=== PATIENT | male | born 1980 | race Caucasian/White ===

== ENCOUNTER → 2022-01-08 13:06 | Outpatient (CLI) | payer OTHER, SELFPAY ==
[2022-01-09 09:42] LABS: Covid-19 Nasal PCR Sendout Lex NOT DETECTED
== END ==
PROVIDERS: Visit Provider Nurse Practitioner
DX: Z20.822 Contact with and (suspected) exposure to COVID-19 (principal)
CPT/HCPCS: C9803; U0004; U0005

== ENCOUNTER 2022-01-29 18:32 | Emergency (ER) | payer OTHER, SELFPAY ==
[2022-01-29 20:18] VITALS: BP 170/110; PULSE 87; RESP 19; TEMP 36.7; O2SAT 97; BMI 26.6
--- NOTE | 2022-01-29 20:42 | HMH.EDUTC ---
[facility] [place] Disposition Clinical Impression: Viral syndrome, Exposure to COVID-19 virus Disposition: Home, Self-Care Condition on Discharge: Good Instructions: DI for COVID-19 (Suspected or Confirmed ), Preventing the Spread of Coronavirus Discharge Instructions Additional Instructions: Drink plenty of fluids. Take tylenol or ibuprofen for pain or fever. Take the medications as directed. Follow up with your regular doctor. GO TO THE ER FOR ANY WORSENING SYMPTOMS Quarantine until you know the results of your covid-19 test. Notify your school or workplace of your results and follow their instructions regarding return to work/school. Prescriptions: Brompheniramine/Pseudoephed/Dm [Bromfed Dm Cough Syrup] 5 ml PO Q6HP PRN #240 ml PRN Reason: Cough Transmission Status: Received by [facility] #[id number] Ondansetron [Zofran 4mg ODT] 4 mg PO Q8HP PRN #20 tab PRN Reason: Nausea Transmission Status: Received by [facility] #[id number] Referrals: Provider,Referral, [Primary Care Provider] - Forms: Work/School Release Time of Disposition: 20:48 Medical Decision Making - Medical Records Medical records reviewed: No: I reviewed the patient's medical records. - Pepe Inquiry Pt receiving controlled substance: No Vital Signs: 01/29/22 20:18 01/29/22 20:54 Temperature 98.1 F 98.1 F Temperature Source Oral Pulse Rate 87 Pulse Rate [Right] 87 Respiratory Rate 19 19 Blood Pressure 170/110 H Blood Pressure [Right Arm] 170/110 H Blood Pressure Mean [Right Arm] 130 02 Sat by Pulse Oximetry 97 - Lab Data Lab results reviewed: Yes: I reviewed the patient's lab results. [facility] [place] HPI - General Stated complaint: covid test Time Seen by Provider: 01/29/22 20:42 Mode of Arrival: Ambulatory Source of Information: Patient Limitations: No Limitations Description of Symptoms (Recalled from Triage Doc. 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 HEENT Symptoms (Recalled from RN notes): Yes Resp Symptoms (Recalled from RN notes): No Skin Symptoms (Recalled from RN notes): No MS Symptoms (Recalled from RN notes): No Functional Status (Recalled from RN notes): wnl - History of Present Illness Provider Complaint: He is here for a covid-19 test. He has been exposed. He does not feel too bad, but he does have a head ache and a loss of taste - Related Data Previous Rx's Medication Instructions Recorded Brompheniramine/Pseudoephed/Dm 5 ml PO Q6HP PRN #240 ml 01/29/22 [Bromfed Dm Cough Syrup] Ondansetron [Zofran 4mg ODT] 4 mg PO Q8HP PRN #20 tab 01/29/22 Allergies Allergy/AdvReac Type Severity Reaction Status Date / Time Iodinated Contrast Media Allergy Verified 01/29/22 20:22 - Worker's Comp Is this a Worker's Comp case?: No [facility] History - Hepatitis A Screen Drug use history?: No High risk sexual behaviors?: No History of sexually transmitted infection?: No Currently employed?: No Childcare worker?: No Do you have indoor plumbing?: Yes Do you have electricity?: Yes Attestation statement:: This patient has been screened for Hepatitis A risk factors. I have reviewed the patient's past medical history: Yes ROS Obtained: Yes All systems reviewed & no additional complaints - Constitutional Constitutional: Reports as per HPI - Eyes Eyes: Denies eye discharge - ENT Ears, Nose, Mouth, and Throat: Reports as per HPI - Cardiovascular Cardiovascular: Denies chest pain - Respiratory Respiratory: Denies chest congestion, Reports cough, Denies dyspnea, Denies stridor, Denies wheezing Physical Exam - General General appearance: alert, in no apparent distress - Head Head exam: atraumatic, normocephalic, normal inspection - Eye Eye exam: Present: normal appearance, PERRL, EOMI - ENT ENT exam: Present: normal exam, normal oropharynx, mucous membranes moist, TM's normal bilaterally, normal external ear exam - Neck Neck exam: Presen
[2022-01-29 20:54] VITALS: BP 170/110; PULSE 87; RESP 19; TEMP 36.7
== END 2022-01-29 20:55 | disposition home or self-care (01) ==
LOC: UTC 18:40
PROVIDERS: Emergency Provider Nurse Practitioner Family
DX: B34.9 Viral infection, unspecified (principal); Z20.822 Contact with and (suspected) exposure to COVID-19
CPT/HCPCS: 99212; C9803; G0463; U0003; U0005

== ENCOUNTER 2022-03-31 09:08 | Emergency (ER) | payer OTHER, SELFPAY ==
[2022-03-31 09:28] VITALS: BP 163/109; PULSE 76; RESP 18; TEMP 36.6; O2SAT 99; BMI 25.9
--- NOTE | 2022-03-31 10:07 | HMH.EDUTC ---
[facility] [place] Disposition Clinical Impression: Cellulitis of finger of right hand, Abscess of finger of right hand Disposition: Home, Self-Care Condition on Discharge: Good Instructions: Cellulitis Additional Instructions: Keep the affected area clean and dry. Follow up with your regular doctor. Take the antibiotics as directed and apply the topical antibiotics as directed. Apply warm wet compresses to the affected area three or four times per day. GO TO THE ER FOR ANY WORSENING SYMPTOMS Prescriptions: Sulfamethoxazole/Trimethoprim [Bactrim DS tablet] 1 each PO BID 10 Days #20 tab Transmission Status: Received by [facility] # Mupirocin [Bactroban 2% Ointment 22gm tube] 1 applicatio TP TID 7 Days #1 gm Transmission Status: Received by [facility] # Referrals: Manuel Leonard MD [Primary Care Provider] - Forms: Work/School Release Time of Disposition: 10:09 Medical Decision Making - Medical Records Medical records reviewed: No: I reviewed the patient's medical records. - Pepe Inquiry Pt receiving controlled substance: No Vital Signs: 03/31/22 09:28 03/31/22 10:40 Temperature 97.9 F 97.9 F Temperature Source Oral Pulse Rate 76 Pulse Rate [Left] 76 Respiratory Rate 18 18 Blood Pressure 150/90 H Blood Pressure [Right Arm] 163/109 H Blood Pressure Mean [Right Arm] 127 02 Sat by Pulse Oximetry 99 Orders (Tests/Meds): ED MEDICATIONS Discontinued Medications Generic Name Dose Route Start Last Admin Trade Name Freq PRN Reason Stop Dose Admin Ceftriaxone Sodium 1 gm 03/31/22 10:04 03/31/22 10:22 Ceftriaxone 1gm Vial IM 03/31/22 10:05 1 gm ONCE ONE Administration Lidocaine HCl 0 ml 03/31/22 10:04 03/31/22 10:22 Lidocaine 1% 5ml Pf Vial IM 03/31/22 10:05 2 ml ONCE ONE Administration [facility] [place] HPI - General Stated complaint: swollen middle finger rt hand Time Seen by Provider: 03/31/22 09:40 Mode of Arrival: Ambulatory Source of Information: Patient Description of Symptoms (Recalled from Triage Doc. by RN): pt states that he has a blister on his right middle finger. he poked it and ripped the top off. now right middle finger is swollen HEENT Symptoms (Recalled from RN notes): No Resp Symptoms (Recalled from RN notes): No Skin Symptoms (Recalled from RN notes): Yes MS Symptoms (Recalled from RN notes): No Functional Status (Recalled from RN notes): wnl - History of Present Illness Provider Complaint: He states that for the past 3 days he has had a worsening red area on his right middle finger. It started out as a blister after he had worked hard, then it began to turn red. Now it is very painful and swollen some. - Related Data Previous Rx's Medication Instructions Recorded Brompheniramine/Pseudoephed/Dm 5 ml PO Q6HP PRN #240 ml 01/29/22 [Bromfed Dm Cough Syrup] Ondansetron [Zofran 4mg ODT] 4 mg PO Q8HP PRN #20 tab 01/29/22 Mupirocin [Bactroban 2% Ointment 1 applicatio TP TID 7 Days #1 gm 03/31/22 22gm tube] Sulfamethoxazole/Trimethoprim 1 each PO BID 10 Days #20 tab 03/31/22 [Bactrim DS tablet] clindamycin HCl 300 mg capsule 300 mg PO Q8H #30 cap 04/01/22 nebivolol 10 mg tablet 10 mg PO DAILY #90 tab 04/01/22 Allergies Allergy/AdvReac Type Severity Reaction Status Date / Time Iodinated Contrast Media Allergy Verified 03/31/22 09:28 - Worker's Comp Is this a Worker's Comp case?: No [facility] History - Hepatitis A Screen Attestation statement:: This patient has been screened for Hepatitis A risk factors. I have reviewed the patient's past medical history: Yes ROS Obtained: Yes All systems reviewed & no additional complaints - Constitutional Constitutional: Denies chills, Denies fever(s) - Musculoskeletal Musculoskeletal: Denies joint pain - Integumentary/Breasts Skin/Breast: Reports as per HPI - Neurologic Neurologic: Denies tingling/numbness/burning sensations Physical Exa
[2022-03-31 10:40] VITALS: BP 150/90; PULSE 76; RESP 18; TEMP 36.6
== END 2022-03-31 10:43 | disposition home or self-care (01) ==
PROVIDERS: Emergency Provider Nurse Practitioner Family; PCP Family Medicine
DX: L03.011 Cellulitis of right finger (principal)
CPT/HCPCS: 96372; 99212; G0463; J0696

== ENCOUNTER → 2022-04-01 11:30 | Outpatient (CLI) | payer OTHER, SELFPAY ==
--- NOTE | 2022-04-01 11:34 | XR_ITS ---
FINAL REPORT CLINICAL HISTORY: chest pain, smoker, no sx FINDINGS: Two views of the chest were obtained. The heart size and pulmonary vascularity are within normal limits. The mediastinum is normal. No acute pulmonary abnormality is identified. There is no pneumothorax. The bony thorax is intact. IMPRESSION: No active cardiopulmonary disease. Reviewed, Interpreted and Dictated by Orville Hanna III, MD Transcribed by Branden Goodwin Authenticated by Orville Hanna III, MD on 04/01/2022 01:56:21 PM [facility]
--- NOTE | 2022-04-01 11:34 | XR_ITS ---
FINAL REPORT CLINICAL HISTORY: . swelling and pain 3rd digit, ? foreign body FINDINGS: Two views of the right 3rd digit were obtained. There is no acute fracture or dislocation. The joint spaces are intact. There is soft tissue swelling of the 3rd digit. There is no foreign body identified. IMPRESSION: No acute fracture or foreign body. Reviewed, Interpreted and Dictated by Orville Hanna III, MD Transcribed by Branden Goodwin Authenticated by Orville Hanna III, MD on 04/01/2022 01:56:24 PM [facility]
[2022-04-01 13:46] LABS: Alanine Aminotransferase 34 U/L (12-78); Albumin Level 4.3 g/dl (3.5-5.0); Albumin/Globulin Ratio 1.5 (1.1-1.8); Alkaline Phosphatase 89 U/L (38-126); Anion Gap 9.1 mEq/L (5-15); Aspartate Amino Transferase 39 U/L (17-59); Bilirubin,Total 0.8 mg/dl (0.2-1.3); Blood Urea Nitrogen 11 mg/dl (9-20); Calcium 9.2 mg/dl (8.4-10.2); Carbon Dioxide 31 mmol/L (22.0-30.0); Chloride 105 mmol/L (98-107); Chol/HDL Ratio 5.6 (1-3.5); Cholesterol 214 mg/dl (140-200); Estimated Glomerular Filt Rate 83 ml/min (>60); GFR (African American) 100 ML/MIN (>60); Globulin 2.8 g/dL (1.3-3.2); Glucose 86 mg/dl (74-100); HDL Cholesterol 38 mg/dl (40-60); Potassium 4.1 mmoL/L (3.5-5.1); Sodium 141 mmol/L (136-145); Total Protein,Serum 7.1 g/dl (6.3-8.2); Triglycerides 126 mg/dl (30-150); VLDL Cholesterol 25 mg/dL (0-40)
[2022-04-01 13:57] LABS: Direct LDL Cholesterol 136.72 mg/dL (100-129)
[2022-04-01 14:04] LABS: Basophils # 0.1 K/mm3 (0-0.2); Basophils % 1.1 % (0.1-2.0); Eosinophils # 0.3 K/mm3 (0.0-0.4); Eosinophils % 3.9 % (0.1-12.0); Hematocrit 49.5 % (42.0-52.0); Hemoglobin 16.8 g/dL (14.1-18.0); Lymphocytes # 1.4 K/mm3 (0.7-4.5); Lymphocytes % 17.1 % (10-50); Mean Corpuscular HGB Conc 34.1 g/dL (31.8-35.4); Mean Corpuscular Hemoglobin 32.1 pg (27.0-31.2); Mean Corpuscular Volume 94.2 fl (80-94); Mean Platelet Volume 8.9 fl (7.4-10.4); Monocytes # 0.6 K/mm3 (0.1-1.0); Monocytes % 7.2 % (1.7-9.3); Neutrophils # 5.9 K/mm3 (1.8-7.8); Neutrophils % 70.7 % (37.0-80.0); Platelet Count 288 K/mm3 (142-424); Red Blood Count 5.25 M/mm3 (4.60-6.20); Red Cell Distribution Width 13.3 % (11.5-17.5); White Blood Count 8.4 K/mm3 (4.8-10.8)
== END ==
PROVIDERS: PCP Family Medicine; Visit Provider Family Medicine
DX: R07.89 Other chest pain (principal); L03.011 Cellulitis of right finger; Z76.89 Persons encountering health services in other specified circumstances
CPT/HCPCS: 71046; 73140; 80053; 80061; 85025

== ENCOUNTER → 2022-04-01 22:09 | Outpatient (CLI) | payer OTHER, SELFPAY | PROVIDERS: PCP Family Medicine; Visit Provider Family Medicine | DX: R07.89 Other chest pain (principal); I10 Essential (primary) hypertension; Z76.89 Persons encountering health services in other specified circumstances; Z72.0 Tobacco use; Z79.899 Other long term (current) drug therapy ==

== ENCOUNTER → 2022-04-10 08:36 | Outpatient (CLI) | payer OTHER, SELFPAY ==
--- NOTE | 2022-04-10 | CA_ITS ---
APPROVED REPORT Exam: Exercise Treadmill Technologist: Angela Lebron, Ht: 6 ft 2 in Wt: 194 lbs BSA: 2.15 m2 HR: 70 bpm BP: 157/96 mmHg Rhythm: sinus arrhythmias, rightward axis Medical History Medical History: HTN Medications: MuPRIROCIN,,,,, ClINDAMYCIN,,,,, ONdanESETRAN,,,,, BROmpheniramine,,,,, SuLFAMETHOXAZ trimethoprin,,,,, Cardiac Risk Factors: HTN, FHX of CAD Stress Test Details Test: Alena HR Resting HR: 88 bpm Max Heart Rate (APMHR): 180.034961 bpm Max HR Achieved: 186 bpm Target HR (85% APMHR): 153.044934 bpm % of APMHR: 103.33 Recovery HR: 179 bpm BP Resting BP: 156/99 mmHg Max BP: 230/100 mmHg Recovery BP: 143.0/84.0 mmHg ECG Resting ECG: sinus arrhytmia, rightward axis Clinical Exercise duration: 13:17 min Highest Stage Achieved: Exercise capacity: 14.8 METs Stress ECG Conclusion During alena protocol pt exercised total of 13:17 into stage 5. Pt experinced sharp stabbing CP beginning of stage 3, continuing to test completion. No arrhythmias noted. Normal ST response to exercise. Atypical CP with normal stress EKGs. Good exercise tolerance. Myoview images reported separately. Test Summary RECOVERY 06:00 0.0 0.0 102 . 143/ 84 . . REST . . . . . . . Standing REST . . . . . . . Standing REST 08:35 0.0 0.0 88 . 156/ 99 . . Stage 1 01:00 10.0 1.7 109 . . . . Stage 1 02:00 10.0 1.7 111 . . . . Stage 1 03:00 10.0 1.7 113 . 178/100 . . Stage 2 01:00 12.0 2.5 122 . . . . Stage 2 02:00 12.0 2.5 129 . . . . Stage 2 03:00 12.0 2.5 135 . 208/100 . . Stage 3 01:00 14.0 3.4 144 . . . . Stage 3 02:00 14.0 3.4 149 . . . . Stage 3 03:00 14.0 3.4 154 . 222/ 98 . . Stage 4 01:00 16.0 4.2 160 . . . . Stage 4 02:00 16.0 4.2 169 . 230/100 . . Stage 4 03:00 16.0 4.2 172 . 230/100 . . Stage 5 01:00 18.0 5.0 181 . . . . Stage 5 01:17 18.0 5.0 184 . . . Stop exercise at 13:17 RECOVERY 01:00 0.0 0.0 149 . . . . RECOVERY 02:00 0.0 0.0 116 . . . . RECOVERY 03:00 0.0 0.0 105 . . . . RECOVERY 04:00 0.0 0.0 98 . . . . RECOVERY 05:00 0.0 0.0 102 . . . . RECOVERY 06:00 0.0 0.0 102 . 143/ 84 . . RECOVERY 07:00 0.0 0.0 101 . 135/ 77 . . RECOVERY 07:21 0.0 0.0 105 . 135/ 77 . . Electronically signed by : Carlos Geiger MD 04/11/2022 12:50:24
--- NOTE | 2022-04-10 08:37 | CA_ITS ---
APPROVED REPORT EXAM: Comprehensive 2D, Doppler, and color-flow Echocardiogram Reading Tutor: Kristi Strong RT(R) Ht: 6 ft 2 in Wt: 197lbs BSA: 2.16 BP: 149/105 mmHg Indications: CP, hx cocaine use, hx heroin use, hx meth use, GERD, hx ME. Stress Test Details HR Max Heart Rate (APMHR): 180.430674 bpm Target HR (85% APMHR): 153.960377 bpm BP ECG Conclusion 1. Patient exercised on Ankit protocol achieving 14.8 METs of workload on treadmill with no EKG changes to suggest ischemia. 2. Resting echocardiogram showed normal left ventricular size and function with no regional wall motion abnormality, with exercise there is increase in contractility of all the segments of the myocardium with hyperdynamic left ventricular systolic response, no obvious regional wall motion abnormality to suggest underlying ischemic heart disease. 3. Normal exercise stress echo except for hypertensive blood pressure response with exercise. Electronically signed by : Carlos Geiger MD 04/11/2022 13:55:33
--- NOTE | 2022-04-10 08:37 | CA_ITS ---
APPROVED REPORT EXAM: Comprehensive 2D, Doppler, and color-flow Echocardiogram Salvage Engineer: Tamera Avery, RCS, RVS Ht: 6 ft 2 in Wt: 194lbs BSA: 2.15 BP: 149/105 mmHg Indications: CP, IVDU, Smoker,Previous [place] @ age30, 2D Dimensions IVSd 1.00 cm LVEF (Visual) 58.20 % PWd 1.05 cm LA Volume 41.90 mL LVDd 5.45 cm LA Volume Index 19.063969 mL/m2 (M/F) 16-34 LVDs 3.76 cm Aortic Root 3.12 cm Left Atrium 3.56 cm LVOT 2.10 cm (M/F) 1.5-2.5 M-Mode Dimensions RVDd 2.64 cm (0.9-2.6) LA Diam 3.55 cm (1.9-4.0) LVDd 5.58 cm (3.5-5.7) Ao Diam 3.42 cm (2.0-3.7) LVDs 4.00 cm (3.5-5.7) IVSd 1.03 cm (0.6-1.1) PWd 0.95 cm (0.6-1.1) EF (Teich) 54.10% FS 28.30% EDV (Teich) 152.40 mL TAPSE 1.26 (<1.7) ESV (Teich) 70.00 mL LV Diastology E Decel Time 177.00 (160-240 msec) E/A Ratio 1.57 MED E' 9.20 (< 7 cm/sec) MED A' 11.60 cm/s E'/MED E' Ratio 7.48 (>14) LAT E' 9.40 (<10 cm/sec) LAT A' 7.00 cm/s E/LAT E' Ratio 7.32 (>14) Aortic Valve LVOT Max 87.00 (70-110 cm/s) LVOT VTI 16.22 cm AoV Peak Joseph. 105.00 (50-130 cm/s) AO Peak GR. 4.40 mmHg AO Mean GR. 2.20 (<5 mmHg) AO VTI 18.72 (18-25 cm) BRIDGET (VTI) 3.00 (2.5-4.5 cm2) Mitral Valve MV A Velocity 44.00 (40-130 cm/s) E/A Ratio 1.57 MV Decel. Time 177.00 (160-240 ms) Pulmonary Valve PV Peak Velocity 77.00 (50-150 cm/s) Tricuspid Valve TR P. Velocity 206.00 cm/s RAP Estimate 10.00 mmHg RVSP 27.00 mmHg Left Ventricle Left atrium is normal size, left ventricle is normal size, there is no concentric left ventricular hypertrophy, estimated ejection fraction 55% with no regional wall motion abnormality, diastolic parameters are within normal range. Right Ventricle Right atrium and right ventricle are mildly enlarged with normal contractility. Aortic Valve Aortic valve is minimally thickened and calcified without aortic stenosis or aortic insufficiency. Mitral Valve Mitral valve is grossly normal, there is trace mitral regurgitation. Tricuspid Valve Tricuspid valve grossly normal, there is trace tricuspid regurgitation, calculated right ventricular systolic pressure is 26 mmHg. Pulmonic Valve Pulmonic valve is poorly visualized. Great Vessels Aortic root is normal size. Inferior vena cava is mildly dilated with normal inspiratory collapse. Pericardium No significant pericardial effusion noted. Conclusion 1. Normal left ventricular size, preserved left ventricular systolic function, estimated ejection fraction 55% with no regional wall motion abnormality, diastolic parameters are within normal range. 2. Mildly enlarged right atrium and right ventricle, contractility of the right ventricle is normal. 3. Trace mitral and tricuspid regurgitation, calculated right ventricular systolic pressure 26 mmHg. 4. No significant pericardial effusion noted. 5. Inferior vena cava is mildly dilated with normal inspiratory collapse. Electronically signed by : Carlos Geiger MD 04/11/2022 13:53:41
== END ==
PROVIDERS: PCP Family Medicine; Visit Provider Internal Medicine Cardiovascular Disease
DX: R06.00 Dyspnea, unspecified (principal); R07.9 Chest pain, unspecified; R00.2 Palpitations; F11.11 Opioid abuse, in remission; F14.11 Cocaine abuse, in remission; Z82.49 Family history of ischemic heart disease and other diseases of the circulatory system; Z87.898 Personal history of other specified conditions
CPT/HCPCS: 93017; 93306; 93350

== ENCOUNTER → 2022-04-11 15:35 | Outpatient (CLI) | payer OTHER, SELFPAY ==
[2022-04-11 17:20] LABS: Chloride 104 mmol/L (98-107); Potassium 4.2 mmoL/L (3.5-5.1); Sodium 139 mmol/L (136-145)
[2022-04-11 17:23] LABS: Anion Gap 14.2 mEq/L (5-15); Blood Urea Nitrogen 20 mg/dl (9-20); Calcium 9.7 mg/dl (8.4-10.2); Carbon Dioxide 25 mmol/L (22.0-30.0); Estimated Glomerular Filt Rate 67 ml/min (>60); GFR (African American) 81 ML/MIN (>60); Glucose 93 mg/dl (74-100)
[2022-04-11 17:31] LABS: NT Pro Brain Natriuretic Pep. 40.8 pg/mL (0-125)
== END ==
PROVIDERS: Visit Provider Internal Medicine Cardiovascular Disease
DX: R06.00 Dyspnea, unspecified (principal); R07.9 Chest pain, unspecified; R00.2 Palpitations; F11.11 Opioid abuse, in remission; F14.11 Cocaine abuse, in remission; Z82.49 Family history of ischemic heart disease and other diseases of the circulatory system; Z87.898 Personal history of other specified conditions
CPT/HCPCS: 36415; 80048; 83880

== ENCOUNTER 2022-06-20 15:59 | Emergency (ER) | payer OTHER, SELFPAY ==
[2022-06-20] VITALS (8 sets, daily range): BP systolic 147–161; BP diastolic 87–98; PULSE 80–89; RESP 15–18; TEMP 36.8–36.9; O2SAT 95–98; BMI 26.4
--- NOTE | 2022-06-20 16:16 | PC.NURSE ---
Called front office developer and informed them that the patient's support person may come back to his room
[2022-06-20 16:31] LABS: Coronavirus 19, PCR Not Detected (NotDetected); Influenza A, PCR Not Detected (NotDetected); Influenza B, PCR Not Detected (NotDetected)
--- NOTE | 2022-06-20 17:07 | HMH.EDGENADL ---
ED Disposition Clinical Impression: Viral illness Disposition: Home, Self-Care Condition on Discharge: Good Additional Instructions: Rest, drink plenty of fluids. Isolate/quarantine for the next 2 days and then repeat a COVID test in 2 days. Referrals: Manuel Leonard MD [Primary Care Provider] - - Critical Care Critical Care Time: No Attestation: On 06/20/22, the high probability of a clinically significant, sudden or life threatening deterioration of the following system(s) required my full and direct attention, intervention and personal management. The time I documented below is in addition to time spent performing reported procedures but includes the following listed in this critical care notation. Medical Decision Making - Pepe Inquiry Pt receiving controlled substance: No Vital Signs: 06/20/22 16:00 06/20/22 16:30 06/20/22 17:00 Temperature 98.5 F Temperature Source Oral Pulse Rate 80 82 Pulse Rate [Right Radial] 88 Respiratory Rate 16 17 15 Blood Pressure 150/96 H 150/87 H Blood Pressure [Right Arm] 161/97 H Blood Pressure Mean 114 108 Blood Pressure Mean [Right Arm] 118 Blood Pressure Source [Right Arm] Automatic Cuff Blood Pressure Position [Right Arm] Sitting 02 Sat by Pulse Oximetry 97 97 95 Oxygen Delivery Method Room Air Room Air Room Air 06/20/22 17:27 06/20/22 17:30 06/20/22 18:02 Temperature 98.5 F 98.5 F Temperature Source Oral Oral Pulse Rate 84 81 89 Pulse Rate [Right Radial] Respiratory Rate 17 16 17 Blood Pressure 150/87 H 147/93 H 152/98 H Blood Pressure [Right Arm] Blood Pressure Mean 112 111 Blood Pressure Mean [Right Arm] Blood Pressure Source [Right Arm] Blood Pressure Position [Right Arm] 02 Sat by Pulse Oximetry 96 96 98 Oxygen Delivery Method Room Air Room Air Room Air 06/20/22 18:30 Temperature Temperature Source Pulse Rate 83 Pulse Rate [Right Radial] Respiratory Rate 15 Blood Pressure 153/98 H Blood Pressure [Right Arm] Blood Pressure Mean 126 Blood Pressure Mean [Right Arm] Blood Pressure Source [Right Arm] Blood Pressure Position [Right Arm] 02 Sat by Pulse Oximetry 97 Oxygen Delivery Method Room Air - Lab Data Lab Results 06/20/22 16:15: SARS-CoV-2 (PCR) Not detected, Influenza A Untype (PCR) Not detected, Influenza Type B (PCR) Not detected 06/20/22 17:55: WBC 7.0, RBC 5.20, Hgb 16.2, Hct 47.0, MCV 90.5, MCH 31.1, MCHC 34.4, RDW 12.0, Plt Count 212, MPV 7.0 L, Neut % (Auto) 86.5 H, Lymph % (Auto) 5.8 L, [place] % (Auto) 6.2, Eos % (Auto) 1.0, Baso % (Auto) 0.6, Neut # (Auto) 6.0, Lymph # (Auto) 0.4 L, [place] # (Auto) 0.4, Eos # (Auto) 0.1, Baso # (Auto) 0.0, Total Counted 100, Neutrophils % (Manual) 89 H, Lymphocytes % (Manual) 8 L, Monocytes % (Manual) 2, Eosinophils % (Manual) 1, Platelet Estimate Normal, RBC Morphology Normal 06/20/22 17:55: Sodium 137, Potassium 3.8, Chloride 100, Carbon Dioxide 31 H, Anion Gap 9.8, BUN 12, Creatinine 1.10, Estimated Creat Clear 118, Estimated GFR 74, Est GFR ( Amer) 90, Glucose 127 H, Calcium 9.2, Total Bilirubin 0.7, AST 47, ALT 38, Alkaline Phosphatase 85, Total Protein 7.7, Albumin 4.5, Globulin 3.2, Albumin/Globulin Ratio 1.4 06/20/22 17:55: Lactate 1.2 06/20/22 18:39: Urine Color Yellow, Urine Appearance Clear, Urine pH 7.0, Ur Specific Sharps 1.015, Urine Protein Negative, Urine Glucose (UA) Negative, Urine Ketones Negative, Urine Blood Negative, Urine Nitrate Negative, Urine Bilirubin Negative, Urine Urobilinogen 1.0, Ur Leukocyte Esterase Negative Result diagrams: 06/20/22 17:55 06/20/22 17:55 Orders (Tests/Meds): ED MEDICATIONS Discontinued Medications Generic Name Dose Route Start Last Admin Trade Name Freq PRN Reason Stop Dose Admin Sodium Chloride 1,000 ml 06/20/22 18:54 06/20/22 18:58 Sodium Chloride 0.9% 1000ml Bag IV 06/20/22 18:55 1,000 ml BOLUS ONE Administration ORDERS Category Date Time Status Urinalysis and Microscop
--- NOTE | 2022-06-20 17:26 | XR_ITS ---
PROCEDURE INFORMATION: Exam: XR Chest Exam date and time: 06/20/2022 5:40 PM Age: 41 years old Clinical indication: Fever TECHNIQUE: Imaging protocol: Radiologic exam of the chest. Views: 2 views. COMPARISON: CR XR CHEST 2V 04/01/2022 11:46 AM FINDINGS: Airway: Patent Lungs: Bilateral segmental bronchial wall thickening. No acute interstitial or airspace disease. Pleural spaces: Unremarkable. No pleural effusion. No pneumothorax. Heart/Mediastinum: Unremarkable. No cardiomegaly. Bones/joints: No acute skeletal abnormality or aggressive osseous lesion. IMPRESSION: Acute bronchitis. No evidence of lobar pneumonia at this time.
--- NOTE | 2022-06-20 17:30 | PC.NURSE ---
Rounded on patient and obtained another temperature. I asked if he needed anything patient asked if I could get him another blanket. Brought patient in a warm blanket. Asked if he needed anything else he said no. Call light within reach of patient
--- NOTE | 2022-06-20 17:47 | PC.NURSE ---
tar processing technician in patient's room; taking patient to xray in wheelchair
--- NOTE | 2022-06-20 17:50 | PC.NURSE ---
Pt has returned from rad via w/c
--- NOTE | 2022-06-20 18:02 | PC.NURSE ---
Pt has asked if he can take his home dose of BP med since he has not had it today. stated that was okay.
[2022-06-20 18:06] LABS: Basophils % 0.6 % (0.1-2.0); Eosinophils # 0.1 K/mm3 (0.0-0.4); Hemoglobin 16.2 g/dL (14.1-18.0); Lymphocytes # 0.4 K/mm3 (0.7-4.5); Lymphocytes % 5.8 % (10-50); Mean Corpuscular HGB Conc 34.4 g/dL (31.8-35.4); Mean Corpuscular Hemoglobin 31.1 pg (27.0-31.2); Mean Corpuscular Volume 90.5 fl (80-94); Monocytes # 0.4 K/mm3 (0.1-1.0); Monocytes % 6.2 % (1.7-9.3); Neutrophils % 86.5 % (37.0-80.0); Platelet Count 212 K/mm3 (142-424)
[2022-06-20 18:08] LABS: MANUAL DIFFERENTIAL MANUAL DIFFERENTIAL (MANUAL DIFF)
[2022-06-20 18:15] LABS: Sodium 137 mmol/L (136-145)
[2022-06-20 18:16] LABS: Potassium 3.8 mmoL/L (3.5-5.1)
[2022-06-20 18:17] LABS: Alanine Aminotransferase 38 U/L (12-78); Aspartate Amino Transferase 47 U/L (17-59); Blood Urea Nitrogen 12 mg/dl (9-20); Creatinine Clearance Estimated 118 mL/min (50-200); Estimated Glomerular Filt Rate 74 ml/min (>60); GFR (African American) 90 ML/MIN (>60)
[2022-06-20 18:18] LABS: Albumin Level 4.5 g/dl (3.5-5.0); Albumin/Globulin Ratio 1.4 (1.1-1.8); Alkaline Phosphatase 85 U/L (38-126); Bilirubin,Total 0.7 mg/dl (0.2-1.3); Calcium 9.2 mg/dl (8.4-10.2); Carbon Dioxide 31 mmol/L (22.0-30.0); Globulin 3.2 g/dL (1.3-3.2); Glucose 127 mg/dl (74-100); Total Protein,Serum 7.7 g/dl (6.3-8.2)
[2022-06-20 18:21] LABS: Lactic Acid 1.2 mmol/L (0.7-2.1)
[2022-06-20 18:23] LABS: Eosinophils % 1 % (0-3); Lymphocytes % 8 % (10-50); Monocytes % 2 % (2-9); Neutrophils % 89 % (42-76); Platelet Estimate Normal; RBC Morphology Normal; Total Cells Counted 100
--- NOTE | 2022-06-20 18:40 | PC.NURSE ---
Urine sent to lab at this time.
[2022-06-20 18:41] LABS: Anion Gap 9.8 mEq/L (5-15); Chloride 100 mmol/L (98-107)
[2022-06-20 18:45] LABS: Microscopic, Urine URINE MICROSCOPIC (MICROSCOPIC)
[2022-06-20 18:46] LABS: Appearance,Urine CLEAR (Clear); Bilirubin,Urine Negative (Negative); Blood, Urine Negative (Negative); Color,Urine YELLOW (Yellow); Glucose,Urine (UA) Negative (Negative); Ketones,Urine Negative (Negative); Leukocyte Esterase,Urine Negative (Negative); Nitrate,Urine Negative (Negative); Protein,Urine Negative (Negative); Specific Gravity, Urine 1.015 (1.005-1.030)
--- NOTE | 2022-06-20 18:48 | PC.NURSE ---
Blood cultures sent to lab
[2022-06-20 19:18] LABS: Squamous Epithelial Cell,Urine Occasional #/hpf (0-5); WBC,Urine Occasional #/hpf (0-3)
== END 2022-06-20 19:50 | disposition home or self-care (01) ==
PROVIDERS: Emergency Provider Emergency Medicine; PCP Family Medicine
DX: B34.9 Viral infection, unspecified (principal); R50.9 Fever, unspecified; H57.10 Ocular pain, unspecified eye; M79.10 Myalgia, unspecified site; R51.9 Headache, unspecified; Z20.822 Contact with and (suspected) exposure to COVID-19; I10 Essential (primary) hypertension; K21.9 Gastro-esophageal reflux disease without esophagitis; I25.2 Old myocardial infarction; D64.9 Anemia, unspecified; K64.9 Unspecified hemorrhoids; F17.290 Nicotine dependence, other tobacco product, uncomplicated; Z79.899 Other long term (current) drug therapy; Z91.041 Radiographic dye allergy status; Z82.49 Family history of ischemic heart disease and other diseases of the circulatory system; Z83.3 Family history of diabetes mellitus; Z80.9 Family history of malignant neoplasm, unspecified
CPT/HCPCS: 71046; 80053; 81001; 83605; 85007; 85025; 87040; 99283; C9803; U0003; U0005

== ENCOUNTER → 2022-12-18 11:10 | Outpatient (CLI) | payer OTHER, SELFPAY ==
--- NOTE | 2022-12-18 11:10 | MR_ITS ---
FINAL REPORT TECHNIQUE: Multiplanar and multisequence imaging of the lumbar spine was obtained without contrast. CLINICAL HISTORY: RLE radiculopathy. right leg burning to knee. lbp. FINDINGS: There is normal alignment of the lumbar vertebral bodies. There is probable congenital abnormality involving the S1 level of the sacrum. Vertebral body height is preserved. The spinal cord ends at the level of L1. There is normal signal intensity within the substance of the distal spinal cord. Bone marrow signal intensity is normal. No acute paraspinal abnormality is identified. L1-2: There is no focal disc herniation, central canal stenosis or neuroforaminal narrowing. L2-3: There is no focal disc herniation, central canal stenosis or neuroforaminal narrowing. L3-4: There is no focal disc herniation, central canal stenosis or neuroforaminal narrowing. L4-5: There is no focal disc herniation, central canal stenosis or neuroforaminal narrowing. L5-S1: An annular disc bulge is present with mild degenerative endplate changes. There is no central stenosis. There is mild right and moderate left neural foraminal narrowing. IMPRESSION: Degenerative disc disease at L5-S1. 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 Reviewed, Interpreted and Dictated by Betsy Capps MD Transcribed by Valentina Nunes Authenticated and [facility]
== END ==
PROVIDERS: PCP Family Medicine; Visit Provider Family Medicine
DX: M54.16 Radiculopathy, lumbar region (principal)
CPT/HCPCS: 72148; 76376